=== PATIENT | female | born 1975 | race Two or more races ===

== ENCOUNTER 2021-07-04 20:43 | Emergency (ER) | payer SELFPAY ==
[~2021-07-04] VITALS: Ht 162.6 cm; Wt 83.0 kg
[2021-07-04] MEDS ORDERED: diphenhdrAMINE HCL 25 MG CAP PO ONE (22:00)
[2021-07-04] MEDS ORDERED: PROCHLORPERAZINE EDISYLATE 5 MG/ML 2ML VIAL IV ONE (22:15)
[2021-07-04] MEDS ORDERED: diphenhdrAMINE HCL 50 MG/1 ML VL IV ONE (22:15)
[2021-07-04] MEDS ORDERED: SODIUM CHLORIDE 0.9% 1,000 ML IV ONE (22:15)
[2021-07-04] MEDS ORDERED: ACETAMINOPHEN 325 MG TAB PO ONE (22:15)
[2021-07-05] MEDS ORDERED: PROCHLORPERAZINE EDISYLATE 5 MG/ML 2ML VIAL ONE (00:39)
[2021-07-05] MEDS ORDERED: BUTAPT GT (01:30)
[2021-07-05 01:43] VITALS: BP 118/78
[2021-07-05] MEDS ORDERED: BUTA-280 OR (18:52)
== END 2021-07-05 01:45 | disposition home or self-care (01) ==
LOC: ER 20:43
DX: G43.909 Migraine, unspecified, not intractable, without status migrainosus (principal)
CPT/HCPCS: 96361; 96374; 96375; 99284; J0780; J1200; J7030

== ENCOUNTER 2022-03-03 07:55 | Emergency (ER) | payer SELFPAY ==
[~2022-03-03] VITALS: Ht 157.5 cm; Wt 82.0 kg
[~2022-03-03 07:55] MED LIST: BUTA-280 OR; BUTAPT GT
[2022-03-03 08:36] LABS: Urine WBC None Seen /hpf (0 - 5)
[2022-03-03 08:49] LABS: Urine Bacteria FEW /hpf (None Seen); Urine Blood Negative /uL (Negative)
[2022-03-03 09:03] LABS: Albumin 3.6 g/dL (3.4-5.0); Basophils # (auto) 0 10 ^3/uL (0-0.2); Basophils % (auto) 0.6 % (0.0-2.0); Calcium 8.4 mg/dL (8.5-10.1); Eosinophils # (auto) 0.3 10 ^3/uL (0-0.8); Eosinophils % (auto) 5.1 % (0.0-7.0); Hematocrit 42.2 % (36.0-46.0); Hemoglobin 14.1 g/dL (12.2-16.2); Lymphocytes # (auto) 1.8 10 ^3/uL (0.4-5.4); Lymphocytes % (auto) 29.8 % (10.0-50.0); Mean Corpuscular Hemoglobin 30.3 pg (28.0-32.0); Mean Corpuscular Hgb Conc. 33.5 g/dL (32.0-36.0); Mean Corpuscular Volume 90.3 fL (80.0-100.0); Monocytes # (auto) 0.5 10 ^3/uL (0-1.3); Monocytes % (auto) 7.9 % (0.0-12.0); Neutrophils # (auto) 3.5 10 ^3/uL (1.6-8.6); Neutrophils % (auto) 56.6 % (37.0-80.0); Red Blood Cells 4.67 10^6/uL (4.0-5.20); Red Cell Distribution Width 13.3 % (11.8-14.3); White Blood Cell 6.2 10^3/uL (4.4-10.8)
[2022-03-03 09:05] LABS: BUN/Creatinine Ratio 9.9; Potassium 3.9 mmol/L (3.5-5.1)
[2022-03-03 09:09] LABS: Bilirubin, Total 0.4 mg/dL (0.2-1.0); Total Protein 7.8 g/dL (6.4-8.2)
[2022-03-03] MEDS ORDERED: HYDROcodone-ACET 5/325MG TAB PO ONE (10:30)
[2022-03-03 12:00] VITALS: BP 126/71
== END 2022-03-03 12:45 | disposition home or self-care (01) ==
LOC: ER 07:55
DX: N23 Unspecified renal colic (principal)
CPT/HCPCS: 36415; 74176; 80053; 81001; 81025; 85025